=== PATIENT | female | born 1990 | race Two or more races ===

== ENCOUNTER 2019-07-30 06:16 | Outpatient (CLI) | payer OTHER | END 2019-07-30 06:17 | disposition home or self-care (01) | LOC: LAB 06:16 | DX: E03.8 Other specified hypothyroidism (principal); I10 Essential (primary) hypertension; Z00.00 Encounter for general adult medical examination without abnormal findings; E78.00 Pure hypercholesterolemia, unspecified; N39.0 Urinary tract infection, site not specified; Z11.4 Encounter for screening for human immunodeficiency virus [HIV]; E55.9 Vitamin D deficiency, unspecified; Z21 Asymptomatic human immunodeficiency virus [HIV] infection status; R79.89 Other specified abnormal findings of blood chemistry ==

== ENCOUNTER → 2019-08-27 15:30 | Outpatient (CLI) | payer OTHER | END | disposition home or self-care (01) | LOC: LAB 15:30 | DX: J11.1 Influenza due to unidentified influenza virus with other respiratory manifestations (principal) ==

== ENCOUNTER 2019-12-22 09:09 | Outpatient (CLI) | payer OTHER | END 2019-12-22 09:17 | disposition home or self-care (01) | LOC: LAB 09:09 | DX: J11.1 Influenza due to unidentified influenza virus with other respiratory manifestations (principal); R05 Cough; Z11.1 Encounter for screening for respiratory tuberculosis ==

== ENCOUNTER 2020-06-25 10:00 | Outpatient (CLI) | payer OTHER | END 2020-06-25 15:00 | disposition home or self-care (01) | LOC: PPH VACUNA 10:00 | DX: Z23 Encounter for immunization (principal) ==

== ENCOUNTER 2020-07-22 06:56 | Outpatient (CLI) | payer OTHER | END 2020-07-22 15:00 | disposition home or self-care (01) | LOC: LAB 06:56 | PROVIDERS: ATTEND Obstetrics & Gynecology | DX: E03.8 Other specified hypothyroidism (principal); Z00.00 Encounter for general adult medical examination without abnormal findings; I10 Essential (primary) hypertension; E78.00 Pure hypercholesterolemia, unspecified; N39.0 Urinary tract infection, site not specified; E55.9 Vitamin D deficiency, unspecified; Z11.4 Encounter for screening for human immunodeficiency virus [HIV]; Z21 Asymptomatic human immunodeficiency virus [HIV] infection status; R79.89 Other specified abnormal findings of blood chemistry ==

== ENCOUNTER → 2020-09-13 09:45 | Outpatient (CLI) | payer OTHER | END | disposition home or self-care (01) | LOC: LAB 09:45 | DX: Z20.828 Contact with and (suspected) exposure to other viral communicable diseases (principal) ==

== ENCOUNTER → 2020-09-16 08:03 | Outpatient (CLI) | payer OTHER | END | disposition home or self-care (01) | LOC: LAB 08:03 | PROVIDERS: ATTEND Dentist Oral and Maxillofacial Surgery | DX: Z20.828 Contact with and (suspected) exposure to other viral communicable diseases (principal) ==

== ENCOUNTER 2020-09-21 15:59 | Outpatient (CLI) | payer OTHER | END 2020-09-21 18:00 | disposition home or self-care (01) | LOC: PPH VACUNA 15:59 | DX: Z23 Encounter for immunization (principal) ==

== ENCOUNTER → 2020-12-02 13:55 | Outpatient (CLI) | payer OTHER | END | disposition home or self-care (01) | LOC: LAB 13:55 | PROVIDERS: ATTEND Emergency Medicine | DX: Z11.3 Encounter for screening for infections with a predominantly sexual mode of transmission (principal) ==

== ENCOUNTER 2021-03-30 14:55 | Outpatient (CLI) | payer OTHER | END 2021-03-30 14:57 | disposition home or self-care (01) | LOC: MAMO-SONO 14:55 | PROVIDERS: ATTEND Surgery | DX: R22.31 Localized swelling, mass and lump, right upper limb (principal); Z01.818 Encounter for other preprocedural examination ==

== ENCOUNTER 2021-04-23 06:19 | Emergency (ER) | payer OTHER ==
[~2021-04-23] VITALS: Ht 157.5 cm; Wt 54.4 kg
[2021-04-23] MEDS ORDERED: CRYSELLE-28 TA1 EACH PO (06:54)
== END 2021-04-23 10:29 | disposition home or self-care (01) ==
LOC: ER 06:19
DX: R21 Rash and other nonspecific skin eruption (principal)

== ENCOUNTER 2021-05-02 06:12 | Outpatient (CLI) | payer OTHER ==
[~2021-05-02 06:12] MED LIST: CRYSELLE-28 TA1 EACH PO
== END 2021-05-02 06:13 | disposition home or self-care (01) ==
LOC: LAB 06:12
PROVIDERS: ATTEND Internal Medicine
DX: Z00.00 Encounter for general adult medical examination without abnormal findings (principal)

== ENCOUNTER 2021-05-09 08:07 | Outpatient (CLI) | payer OTHER | END 2021-05-09 15:00 | disposition home or self-care (01) | LOC: LAB 08:07 | PROVIDERS: ATTEND Emergency Medicine Pediatric Emergency Medicine | DX: Z03.818 Encounter for observation for suspected exposure to other biological agents ruled out (principal) ==

== ENCOUNTER 2021-07-04 10:10 | Outpatient (CLI) | payer OTHER | END 2021-07-04 10:30 | disposition home or self-care (01) | LOC: PPH VACUNA 10:10 | DX: Z23 Encounter for immunization (principal) ==

== ENCOUNTER → 2021-07-14 11:15 | Outpatient (CLI) | payer OTHER | END | disposition home or self-care (01) | LOC: LAB 11:15 | PROVIDERS: ATTEND General Practice | DX: K62.89 Other specified diseases of anus and rectum (principal) ==

== ENCOUNTER 2021-08-23 07:01 | Outpatient (CLI) | payer OTHER | END 2021-08-23 07:03 | disposition home or self-care (01) | LOC: LAB 07:01 | PROVIDERS: ATTEND Internal Medicine Hematology & Oncology | DX: D51.3 Other dietary vitamin B12 deficiency anemia (principal); D58.2 Other hemoglobinopathies ==

== ENCOUNTER 2021-08-29 12:17 | Outpatient (CLI) | payer OTHER | END 2021-08-29 12:24 | disposition home or self-care (01) | LOC: LAB 12:17 | PROVIDERS: ATTEND General Practice | DX: R05.8 Other specified cough (principal); R07.0 Pain in throat; J11.1 Influenza due to unidentified influenza virus with other respiratory manifestations ==

== ENCOUNTER 2021-09-23 14:51 | Outpatient (CLI) | payer OTHER | END 2021-09-23 15:23 | disposition home or self-care (01) | LOC: LAB 14:51 | DX: R05.8 Other specified cough (principal); R50.9 Fever, unspecified; R06.02 Shortness of breath; Z03.818 Encounter for observation for suspected exposure to other biological agents ruled out; Z20.828 Contact with and (suspected) exposure to other viral communicable diseases ==

== ENCOUNTER 2021-09-28 06:33 | Outpatient (CLI) | payer OTHER | END 2021-09-28 06:52 | disposition home or self-care (01) | LOC: LAB 06:33 | PROVIDERS: ATTEND Pediatrics | DX: Z20.822 Contact with and (suspected) exposure to COVID-19 (principal) ==

== ENCOUNTER 2022-02-01 11:29 | Outpatient (CLI) | payer OTHER | END 2022-02-01 11:32 | disposition home or self-care (01) | LOC: LAB 11:29 | DX: U07.1 COVID-19 (principal) ==

== ENCOUNTER 2022-02-20 14:39 | Outpatient (CLI) | payer OTHER | END 2022-02-20 14:41 | disposition home or self-care (01) | LOC: LAB 14:39 | PROVIDERS: ATTEND Emergency Medicine Pediatric Emergency Medicine | DX: D64.9 Anemia, unspecified (principal) ==

== ENCOUNTER 2022-03-31 06:14 | Outpatient (CLI) | payer OTHER | END 2022-03-31 07:25 | disposition home or self-care (01) | LOC: LAB 06:14 | PROVIDERS: ATTEND Internal Medicine | DX: Z00.00 Encounter for general adult medical examination without abnormal findings (principal); E78.2 Mixed hyperlipidemia; D64.9 Anemia, unspecified; Z11.3 Encounter for screening for infections with a predominantly sexual mode of transmission ==

== ENCOUNTER 2022-06-28 12:35 | Outpatient (CLI) | payer OTHER | END 2022-06-28 12:40 | disposition home or self-care (01) | LOC: PPH VACUNA 12:35 | PROVIDERS: ATTEND Emergency Medicine Pediatric Emergency Medicine | DX: Z23 Encounter for immunization (principal) ==

== ENCOUNTER 2022-09-05 13:12 | Outpatient (CLI) | payer OTHER | END 2022-09-05 13:15 | disposition home or self-care (01) | LOC: LAB 13:12 | PROVIDERS: ATTEND Internal Medicine Hematology & Oncology | DX: D57.3 Sickle-cell trait (principal) ==

== ENCOUNTER 2022-09-14 07:23 | Outpatient (CLI) | payer OTHER | END 2022-09-14 07:42 | disposition home or self-care (01) | LOC: LAB 07:23 | PROVIDERS: ATTEND Internal Medicine Hematology & Oncology | DX: D57.3 Sickle-cell trait (principal) ==

== ENCOUNTER 2022-09-20 06:46 | Outpatient (CLI) | payer OTHER | END 2022-09-20 07:02 | disposition home or self-care (01) | LOC: LAB 06:46 | PROVIDERS: ATTEND Obstetrics & Gynecology | DX: Z00.00 Encounter for general adult medical examination without abnormal findings (principal); I10 Essential (primary) hypertension; E03.9 Hypothyroidism, unspecified; E78.00 Pure hypercholesterolemia, unspecified; N39.0 Urinary tract infection, site not specified; Z11.4 Encounter for screening for human immunodeficiency virus [HIV]; E55.9 Vitamin D deficiency, unspecified; Z21 Asymptomatic human immunodeficiency virus [HIV] infection status; R79.9 Abnormal finding of blood chemistry, unspecified; R79.89 Other specified abnormal findings of blood chemistry ==

== ENCOUNTER 2022-10-23 08:46 | Outpatient (CLI) | payer OTHER | END 2022-10-23 08:47 | disposition home or self-care (01) | LOC: LAB 08:46 | PROVIDERS: ATTEND Internal Medicine | DX: Z00.00 Encounter for general adult medical examination without abnormal findings (principal); E55.9 Vitamin D deficiency, unspecified ==

== ENCOUNTER 2022-11-28 15:03 | Outpatient (CLI) | payer OTHER | END 2022-11-28 15:05 | disposition home or self-care (01) | LOC: SONOGRAMA 15:03 | PROVIDERS: ATTEND Internal Medicine Endocrinology, Diabetes & Metabolism | DX: E04.8 Other specified nontoxic goiter (principal) ==

== ENCOUNTER 2023-01-15 07:48 | Outpatient (CLI) | payer OTHER | END 2023-01-15 08:57 | disposition home or self-care (01) | LOC: LAB 07:48 | PROVIDERS: ATTEND Pediatrics | DX: N91.2 Amenorrhea, unspecified (principal) ==

== ENCOUNTER 2023-01-16 07:09 | Outpatient (CLI) | payer OTHER | END 2023-01-16 07:10 | disposition home or self-care (01) | LOC: NUCLEAR 07:09 | PROVIDERS: ATTEND Internal Medicine Endocrinology, Diabetes & Metabolism | DX: E05.00 Thyrotoxicosis with diffuse goiter without thyrotoxic crisis or storm (principal) | CPT/HCPCS: 78014; A9528 ==

== ENCOUNTER 2023-01-17 07:15 | Outpatient (CLI) | payer OTHER | END 2023-01-17 07:24 | disposition home or self-care (01) | LOC: NUCLEAR 07:15 | PROVIDERS: ATTEND Internal Medicine Endocrinology, Diabetes & Metabolism | DX: E05.00 Thyrotoxicosis with diffuse goiter without thyrotoxic crisis or storm (principal) | CPT/HCPCS: 78014; A9528 ==

== ENCOUNTER 2023-01-19 09:37 | Outpatient (CLI) | payer OTHER | END 2023-01-19 15:11 | disposition home or self-care (01) | LOC: LAB 09:37 | DX: E05.90 Thyrotoxicosis, unspecified without thyrotoxic crisis or storm (principal) ==

== ENCOUNTER 2023-04-23 07:34 | Outpatient (CLI) | payer OTHER | END 2023-04-23 07:56 | disposition home or self-care (01) | LOC: LAB 07:34 | DX: Z20.828 Contact with and (suspected) exposure to other viral communicable diseases (principal); D64.9 Anemia, unspecified ==

== ENCOUNTER → 2023-06-07 | Outpatient (CLI) | payer OTHER | END | disposition home or self-care (01) | LOC: PPH VACUNA 08:38 | PROVIDERS: ATTEND Emergency Medicine Pediatric Emergency Medicine | DX: Z23 Encounter for immunization (principal) ==

== ENCOUNTER 2023-09-21 07:36 | Outpatient (CLI) | payer OTHER ==
[2023-09-21 09:07] LABS: URINE APPEARANCE Clear; URINE BILIRRUBIN Negative (NEGATIVE); URINE BLOOD Moderate; URINE COLOR Yellow; URINE GLUCOSE Negative (NEGATIVE); URINE LEUKOCYTE Negative; URINE NITRATE Negative; URINE PROTEIN Negative (NEGATIVE)
[2023-09-21 09:11] LABS: URINE BACTERIA 143.5 uL (0.0-1933); URINE EPITHELIAL CELLS 6.7 uL (0.0-38.8); URINE RBC 22.7 uL (0.0-20.8); URINE WBC 3.8 uL (0.0-23.2)
[2023-09-21 09:15] LABS: HEMATOCRIT 39.9 % (36.0-45.00); HEMOGLOBIN 13.8 g/dL (12.0-15.00); MEAN CELL VOLUME 87.5 fL (80.00-100.00); MEAN CORPUSCULAR HEMOGLOBIN 30.3 pg (27.00-32.0); MEAN CORPUSCULAR HGB CONC 34.6 g/dl (32.0-36.0); PLATELET COUNT 367 K/uL (150-450); RED BLOOD COUNT 4.56 M/uL (4.00-6.00)
[2023-09-21 09:57] LABS: ALBUMIN 3.6 gm/dL (3.4-5.0); BILIRUBIN TOTAL 0.62 mg/dL (0.3-1.2); CALCIUM 8.6 mg/dL (8.5-10.1); CHOL HDL RATIO 2.8 (0-5.0); CREATININE SERUM 0.76 mg/dL (0.55-1.02); GFR 87.64; GLOBULINA 3.9 G/DL (2.4-3.5); POTASSIUM 4.2 mEq/L (3.5-5.1); T4 FREE 1.01 NG/ML (0.76-1.46); TOTAL PROTEIN 7.5 gm/dL (6.4-8.2)
[2023-09-21 10:24] LABS: TSH 0.313 uIU/mL (0.358-3.74)
== END 2023-09-21 08:11 | disposition home or self-care (01) ==
LOC: LAB 07:36
PROVIDERS: ATTEND Obstetrics & Gynecology
DX: Z00.00 Encounter for general adult medical examination without abnormal findings (principal); I10 Essential (primary) hypertension; E03.9 Hypothyroidism, unspecified; E78.00 Pure hypercholesterolemia, unspecified; N39.0 Urinary tract infection, site not specified; Z11.4 Encounter for screening for human immunodeficiency virus [HIV]; E55.9 Vitamin D deficiency, unspecified; Z21 Asymptomatic human immunodeficiency virus [HIV] infection status; R79.9 Abnormal finding of blood chemistry, unspecified; R79.89 Other specified abnormal findings of blood chemistry

== ENCOUNTER 2023-10-22 09:45 | Outpatient (CLI) | payer OTHER | END 2023-10-22 09:55 | disposition home or self-care (01) | LOC: SONOGRAMA 09:45 | PROVIDERS: ATTEND Obstetrics & Gynecology | DX: E07.9 Disorder of thyroid, unspecified (principal) ==